=== PATIENT | male | born 1980 | race Two or more races ===

== ENCOUNTER 2022-04-10 11:21 | Observation (INO) | payer OTHER ==
[~2022-04-10] VITALS: Ht 165.1 cm; Wt 73.8 kg
--- NOTE | 2022-04-10 20:00 | NUR ---
report received from pileremilia whaley via telephone, awaiting pt's arrival to [facility] floor.
--- NOTE | 2022-04-10 20:30 | NUR ---
pt ARRIVES TO [facility] FLOOR. ADMISSION SCREENING COMPLETE. pt NAUSEOUS, NO EMESIS AT THIS TIME. HYPERTENSIVE, pt SITTING AT SIDE OF BED, STATES THAT HE'S PAINFUL, MAYBE 9/10 THEN RETRACTS, STATES "WELL I DID JUST GET PAIN MEDICATION IN THE ER". ASSISTED pt TO CALL FRIEND, ADDED TO CONTACT LIST BY REQUEST, LUCRETIA NUNO [phone]. ORIENTATION TO ROOM PROVIDED. CALL LIGHT NEXT TO pt. PRIMARY RN NOTIFIED OF BP, PAIN, NAUSEA.
--- NOTE | 2022-04-10 20:50 | NUR ---
call made to dr martinez to clarify ng orders, per report from ed, pt did not tolerate attempt to place ng tube and had approx [address] martinez, okay to go without ng tube at this time and if pt feels it could be placed later in shift without throwing up staff can try again then. charge account identification clerk bailey updated. dr martinez also made aware of elevated bp result of 134/100, map of 109. no new orders received at this time. will monitor. bed alarm on.
--- NOTE | 2022-04-10 21:34 | NUR ---
ASSESSMENT COMPLETE, pt FOUND RESTING IN BED WITH EYES CLOSED. RR EVEN AND UNLABORED, NO DISTRESS NOTED. pt AWOKE TO VOICE REPORTS NAUSEA AND 8/10 PAIN. PRN PAIN AND NAUSEA MEDICATION GIVEN-SEE EMAR. IV SITE WNL, BRISK BLOOD RETURN NOTED. IV FLUIDS INFUSING DIRECTED. EMESIS AND PERSONAL BELONGINGS REMAIN IN REACH, BED ALARM ON. DISCUSSED POC FOR REMAINING SHIFT, pt VERBALIZED UNDERSTANDING. pt REFUSES NG TUBE PLACEMENT AT THIS TIME, pt EDUCATED ON RATIONALE FOR NG TUBE, CONTINUES TO POLITELY DECLINE. WILL MONITOR. WILL CONTINUE TO MONITOR.
--- NOTE | 2022-04-10 23:16 | NUR ---
ROUNDED ON pt, pt RESTING QUIETLY IN BED WITH EYES CLOSED. ON RA, RR EVEN AND UNLABORED. NO DISTRESS NOTED. BED ALARM REMAINS ON AND CALL LIGHT IN REACH. NO OUTWARD S/SX OF PAIN NOTED, WILL MONITOR. IV FLUIDS INFUSING DIRECTED, IV SITE REMAINS WNL.
--- NOTE | 2022-04-11 01:22 | NUR ---
ROUNDED ON pt, pt REAMISN RESTING IN BED WITH EYES CLOSED. ON RA, RR EVEN AND UNLABORED. NO DISTRESS NOTED. CALL LIGHT IN REACH AND BED ALARM ON FOR SAFETY. IV SITE WNL, FLUIDS INFUSING DIRECTED. WILL CONTINUE TO MONITOR.
--- NOTE | 2022-04-11 03:31 | NUR ---
ROUNDED ON pt, pt AWOKE TO VOICE. VSS, CPOX AND SCD'S IN PLACE. BED ALARM REMAINS ON FOR SAFETY AND CALL LIGHT IN REACH. pt REMOVED JEANS AND WEIGHT OBTAINED VIA BED AND CHARTED. pt REPORTS 8/10 PAIN, REPORTS 5/10 PAIN IS TOLERABLE. PRN PAIN MEDICATION GIVEN-SEE EMAR. NEW BAG IV FLUIDS ALSO HUNG AND INFUSING DIRECTED, IV SITE WNL. pt DENIES NEED TO VOID. CALL LIGHT IN REACH.
--- NOTE | 2022-04-11 04:41 | NUR ---
pt RESTING IN BED WITH EYES CLOSED, FACING WINDOW. ON RA, RR EVEN AND UNLABORED, NO DISTRESS NOTED. CPOX IN PLACE, SPO2 96% AND HR 86%. BED ALARM ON FOR SAFETY AND CALL LIGHT IN REACH. SCD'S ALSO ON. NO URINE NOTED YET IN URINAL, WILL MONITOR. IV FLUIDS INFUSING DIRECTED.
--- NOTE | 2022-04-11 05:19 | NUR ---
rounded on pt, pt awake and resting in bed. bed alarm remains on for safety and call light in reach. lab also in room for am lab draw. vss, cpox remains in place. pt instructed to use urinal and use call light once done. pt verbalized understanding. no additional needs or concerns verbalized at this time.
--- NOTE | 2022-04-11 06:33 | CONS ---
[facility] [address], [place] [address] Signed DATE OF CONSULTATION: 04/10/2022 CHIEF COMPLAINT: Generalized abdominal pain. HISTORY OF PRESENT ILLNESS: Jaimie is a 41-year-old gentleman, otherwise quite healthy, who over the last two days has had generalized abdominal pain, nausea, vomiting, diarrhea, chills and sweats. He was getting more dehydrated and the pain seemed to be getting worse, so he came to the emergency room for evaluation. In the emergency room, he was not particularly concerning on his abdominal exam and his blood work was not overly concerning other than his concentrated urine. COVID test was negative. A CT scan of the abdomen and pelvis shows a very dilated stomach with fluid and air along with air-fluid levels and dilated small bowel and some stool and air in the colon most concerning for a viral gastroenteritis. When they tried to place his NG tube, he vomited quite a bit and said he does feel better. He has received some IV fluids. He did require some Dilaudid here in the emergency room. No antibiotics. I have been asked to see him here in the emergency room as a general surgeon on-call. PAST MEDICAL HISTORY: None. PAST SURGICAL HISTORY: None. SOCIAL HISTORY: He does not smoke, drink, or use IV drugs. He has a girlfriend named Ghada. 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 He is originally from [place], [place]. He has no primary care provider. He prefers the [facility] pharmacy. FAMILY HISTORY: None. REVIEW OF SYSTEMS: He had 10 systems reviewed and there were no new findings. He has injured his shoulders but otherwise no surgeries. ALLERGIES: Shellfish causes anaphylaxis. MEDICATIONS: None. Electronically Signed By: BILL BYRNE MD 04/11/22 0633 PATIENT NAME: JAIMIE VOGT CONSULTATION DATE OF : 84 REPORT #: [id number] PHYSICIAN: BILL BYRNE MD PCP: NO PRIMARY CARE PHYSICIAN REPORT IS CONFIDENTIAL AND NOT TO BE RELEASED WITHOUT AUTHORIZATION [facility] [address], [place] [address] Signed PHYSICAL EXAMINATION: VITAL SIGNS: His blood pressure is 141/112, heart rate is 65, respiratory rate 18, temperature is 98.0. He is 96% on room air. He is 5 feet 5 inches at 70 kg with a body mass index of 25. GENERAL: Jaimie is a 41-year-old gentleman lying supine in his ER bed. He does not appear to be in obvious distress. He seems to be a good historian. His lips were a bit dry. LUNGS: Clear to auscultation bilaterally. HEART: Regular rate and rhythm without murmurs. ABDOMEN: Soft, flat and nontender without peritoneal signs or symptoms. LABORATORY DATA: His white blood count is 9.2, hemoglobin 17, neutrophils 66. Electrolytes are unremarkable. BUN 13, creatinine 1.0. Urinalysis showed his specific gravity greater than 1.03 with ketones, protein, and 2+ bacteria. A urine culture has been sent. COVID is negative. The liver function tests are negative. Lipase is negative. Albumin is 4.2. RADIOGRAPHIC STUDIES: CT scan of the abdomen and pelvis shows a rather distended stomach with air-fluid levels as well as dilated small bowel with air-fluid levels and then air and stool in his colon. ASSESSMENT AND PLAN: Jaimie is a 41-year-old gentleman, who appears to have fairly significant viral gastroenteritis with dehydration. I doubt he has urinary tract infection. We are going to admit him with conservative treatment particularly IV fluids. We can repeat the UA tomorrow. He told me he has no symptoms with respect to his urinary system. I reviewed this in detail with Jaimie. He has expressed understanding and agrees with the above plan. Bill Byrne MD ALB/MODL /[id number] cc: Bill Byrne MD Electronically Signed By: BILL BYRNE MD 04/11/22 0633 PATIENT NAME: JAIMIE VOGT CONSULTATION DATE OF : 84 REPORT #: [id number] PHYSICIAN: BILL BYRNE MD PCP: NO PRIMARY CARE PHYSICIAN REPORT IS CONFIDENTIAL AND NOT TO BE RELEASED WITHOUT AUTHORIZATION [facility] [address] [place] [id number] Signed Copies: BILL BYRNE MD ~ Electronically Signed By: BILL BYRNE MD 04/11/22 0633 PATIENT NAME: JAIMIE VOGT CONSULTATION DATE OF : 84 REPORT #: [id number] PHYSICIAN: BILL BYRNE MD PCP: NO PRIMARY CARE PHYSICIAN REPORT IS CONFIDENTIAL AND NOT TO BE RELEASED WITHOUT AUTHORIZATION
--- NOTE | 2022-04-11 06:35 | NUR ---
dr martinez at rn station and made aware of recent 400mls output- concentrated and smelly urine per community reinvestment act officer. dr martinez updated. no new orders received.
--- NOTE | 2022-04-11 06:57 | NUR ---
2 gm mag rider infusing as directed, iv site wnl. call light inr each. cpox in place, vss.
--- NOTE | 2022-04-11 07:39 | NUR ---
RECIEVED SHIFT REPORT. PT RESTING IN BED, EYES CLOSED. BREATHING EVEN AND UNLABORED. CALL LIGHT WITHIN REACH.
--- NOTE | 2022-04-11 09:57 | NUR ---
MORNING ASSESSMENT COMPLETE. PT RESTING IN BED, EYES CLOSED, EASY TO AROUSE, DROWSEY. PT RATES PAIN 7/10 IN THE ABD. DOESNT APPEAR IN DISTRESS. ABD TENDER, BOWEL TONES ACTIVE IN ALL QUADRANTS. CALL LIGHT WITHIN REACH. BED ALARM ON.
--- NOTE | 2022-04-11 10:33 | NUR ---
venetian blind cleaner and repairer reported pt hasnt urinated. this rn in room to assess. pt was willing to get up and try. SBA without difficulty.
--- NOTE | 2022-04-11 11:09 | NUR ---
PT RESTING IN BED, EYES CLOSED, BREATHING EVEN AND UNALBORED. CALL LIGHT WITHIN REACH. BED ALARM ON.
--- NOTE | 2022-04-11 12:08 | NUR ---
pt resting in bed, eyes closed. breathing even and unlabored. call light within reach.
--- NOTE | 2022-04-11 13:32 | NUR ---
SPOKE WITH PATIENT IN ROOM AFTER WAKING HIM ON SECOND ATTEMPT TO SEE. PATIENT STATES HE LIVES WITH ROOMMATES. HE DENIES HAVING FINANCIAL WORRY FOR FOOD AND UTILITIES. STATES HE FEELS SAFE TO RETURN HOME AT DISCHARGE. PATIENT DOES NOT DRIVE. IS UNEMPLOYED AT THIS TIME. HE HAS INSURANCE FROM [facility] AND AGREES TO TALK WITH SOMEONE ABOUT CHANGING TO [place]. DISCUSSED I WILL HAVE SOMEONE FROM OUR FACILITY COME TALK WITH HIM FOR HELP, HE IS AGREEABLE TO THIS. DISCUSSED IMPORTANTANCE OF PCP. HE IS OPEN TO HAVE F/U APPT MADE FOR HIM WITH SOMEONE HE CAN SET UP WITH. HE IS OK WITH ANY CLINIC WHO HAS OPENING. HE USES NO DME. HE KNOWS OF NOTHING HE NEEDS TO RETURN HOME SAFELY AT THIS TIME.
--- NOTE | 2022-04-11 14:19 | NUR ---
pt resting in bed, eyes closed, breathing even and unlabored. call light within reach. bed alarm on.
--- NOTE | 2022-04-11 15:46 | NUR ---
TIA AND I GOT PATIENT UP OUT OF BED. PATIENT USED THE BATHROOM. NOW PATIENT IS SITTING UP IN HIS CHAIR SLEEPING. ASKED HIM IF HE WOULD LIKE A WARM BLANKET OR WATCH TV AND HE SAID NO.
--- NOTE | 2022-04-11 16:22 | NUR ---
afternoon assessment complete. no new changes since morning assessment. pt up in recliner. call light within reach.
--- NOTE | 2022-04-11 19:00 | NUR ---
REPORT RECEIVED FROM CHONG GRAHAM. PT RESTING IN BED WITH EYES CLOSED. RR EVEN AND UNLABORED. NO NEEDS IDENTIFIED AT THIS TIME. CALL LIGHT IN REACH. BED ALARM ON.
--- NOTE | 2022-04-11 21:30 | NUR ---
ASSESSMENT COMPLETE. LUNG SOUNDS CLEAR. BOWEL TONES ACTIVE. ABD TENDER WITH PALPATION. PT REPORTS PAIN 5/10 IN LLQ, BUT DENIES ANY PAIN MEDICATION WHEN OFFERED AT THIS TIME. I&Os COMPLETE. PT DENIES ANY OTHER NEEDS AT THIS TIME. CALL LIGHT IN REACH. BED ALARM ON. PT RESTING IN BED WITH EYES CLOSED. RR EVEN AND UNLABORED.
--- NOTE | 2022-04-12 00:36 | NUR ---
IN TO ROUND ON PT. IV PUMP ALARMING. FLUIDS COMPLETE. NEW BAG OF FLUIDS HUNG, SEE MAR. PT RESTING IN BED ON LEFT SIDE. RR EVEN AND UNLABORED. IV INFUSING WNL. PT REPORTS PAIN 5/10, BUT DENIES PAIN MEDICATION WHEN OFFERED. PT REPORTS NO OTHER NEEDS AT THIS TIME. CALL LIGHT IN REACH.
--- NOTE | 2022-04-12 05:51 | NUR ---
VITALS AND I&Os COMPLETE. ASSESSMENT COMPLETE. LUNG SOUNDS CLEAR. BOWEL TONES ACTIVE. ABD TENDER IN LLQ WITH PALPATION. PT REPORTS PAIN 5/10 IN LLQ, PT DENIES ANY PAIN MEDICATION WHEN OFFERED. IV INFUSING WNL. PT DENIES ANY NEEDS AT THIS TIME. CALL LIGHT IN REACH. BED ALARM ON.
--- NOTE | 2022-04-12 07:14 | NUR ---
REPORT RECEIVED FROM FLORES SCHWARZ. ALL QUESTIONS ANSWERED.
--- NOTE | 2022-04-12 07:22 | NUR ---
IN IV PUMP ALARMING, RESOLVED. NEW BAG OF FLUIDS STARTED AND RATE CHANGED, SEE MAR. PT RESTING IN BED WITH EYES CLOSED. RR EVEN AND UNLABORED. NO NEEDS IDENTIFIED AT THIS TIME. CALL LIGHT IN REACH. BED ALARM ON.
--- NOTE | 2022-04-12 08:43 | NUR ---
GOT PT UP TO CHAIR STBY ASSIST. LINEN CHANGE, SET UP FOR CLEAR BREAKFAST, NEW URINAL NEXT TO CHAIR FOR UA. WARM WASH CLOTH FOR FACE/HANDS. PT WAS HESITANT TO WAKE UP BEING SLEEPY. CALL LIGHT ON TABLE NEXT TO HIM. NO OTHER NEEDS AT THIS TIME.
--- NOTE | 2022-04-12 08:57 | NUR ---
pt urine noam sent to lab
--- NOTE | 2022-04-12 09:41 | NUR ---
MORNING ASSESSMENT COMPELTE. PT SITTING UP IN RECLINER WITH EYES CLOSED, AWAKENS EASILY. FLAT AFFECT. ONE WORD ANSWERS TO QUESTIONS AND BACK TO EYES CLOSED. PT DENIES PAIN OR NAUSEA AT THIS TIME. CLEAR LIQUID TRAY AT BEDSIDE, PT DRANK FULL CUP BROTH, TEA AT THIS TIME. PT DENIES FURTHER NEEDS AT THIS TIME. CALL LIGHT IN REACH.
--- NOTE | 2022-04-12 10:52 | NUR ---
PT RESTING IN CHAIR WITH EYES CLOSED. AWAKENS EASILY. PT TOLERATED FULL CLEAR LIQUID TRAY AT BREAKFAST, PT DENIES NAUSEA. PT DENIES FURTHER NEEDS AT THIS TIME. CALL LIGHT IN REACH.
--- NOTE | 2022-04-12 12:44 | NUR ---
MED REC COMPLETE
--- NOTE | 2022-04-12 19:10 | NUR ---
REPORT RECEIVED FROM CHONG STEELE. PT RESTING IN BED ON LEFT SIDE WITH EYES CLOSED. RR EVEN AND UNLABORED. PT RESPONDS WHEN ADDRESSED. PT DENIES ANY NEEDS AT THIS TIME. CALL LIGHT IN REACH.
--- NOTE | 2022-04-12 20:05 | NUR ---
VITALS AND I&Os COMPLETE. ASSESSMENT COMPLETE. PT RESTING IN BED WITH EYES CLOSED. RR EVEN AND UNLABORED. PT RESPONDS WHEN ADDRESSED. LUNG SOUNDS CLEAR. BOWEL TONES ACTIVE. ABD TENDER WITH PALPATION. PT STATES MORE TENDER ON "LEFT SIDE" WITH PALPATION. PT REPORTING PAIN 4/10, PT DENIES PAIN MEDICATION WHEN OFFERED. IV INFUSING WNL. PT DENIES ANY NEEDS AT THIS TIME. CALL LIGHT IN REACH. PT RESTING IN BED WITH EYES CLOSED. RR EVEN AND UNLABORED.
--- NOTE | 2022-04-13 03:18 | NUR ---
IN IV PUMP ALARMING, RESOLVED. NEW BAG OF FLUIDS STARTED, SEE MAR. PT RESTING ON LEFT SIDE. RR EVEN AND UNLABORED. URINAL EMPTIED. NO OTHER NEEDS IDENTIFIED AT THIS TIME. CALL LIGHT IN REACH.
--- NOTE | 2022-04-13 05:03 | NUR ---
IN WITH TATUM GALEANA. PT RESTING IN BED WITH EYES CLOSED. RR EVEN AND UNLABORED. PT RESPONDS WHEN ADDRESSED, BUT KEEPS EYES CLOSED. VITALS AND I&Os COMPLETE. IV INFUSING WNL. ASSESSMENT COMPLETE. LUNG SOUNDS CLEAR. BOWEL TONES ACTIVE. PT REPORTS ABD TENDERNESS WITH PALPATION. PT REPORTS PAIN 3/10, PT DENIES ANY PAIN MEDICATION WHEN OFFERED. PT RESTING IN BED WITH EYES CLOSED. RR EVEN AND UNLABORED. PT REPORTS NO NEEDS AT THIS TIME. CALL LIGHT IN REACH. FEMALE FRIEND IN ROOM.
--- NOTE | 2022-04-13 07:05 | NUR ---
REPORT RECEIVED FROM BOBBI SCHWARZ, ALL QUESTIONS ANSWERED.
--- NOTE | 2022-04-13 07:26 | DS ---
[facility] [address], [place] [address] Signed ADMISSION DATE: 04/10/2022 DISCHARGE DATE: 04/13/2022 FINAL DIAGNOSIS: Viral gastroenteritis. PROCEDURE: CT scan of abdomen and pelvis. HISTORY OF PRESENT ILLNESS: Brenden is a 41-year-old gentleman, otherwise healthy, who over two days had generalized abdominal pain, nausea, vomiting, diarrhea, chills and sweats. He was becoming dehydrated. He finally came to the emergency room for evaluation. He was seen and evaluated by the ER physician and myself. White count was not particularly concerning. His abdominal exam was not overly concerning with some mild distention and diffuse tenderness. CT scan showed multiple air-fluid levels in the stomach and small bowel with air and stool in his colon. An NG tube was attempted to be placed and that was unsuccessful. He then vomited and decompressed his stomach and felt better. He is admitted with his viral gastroenteritis. HOSPITAL COURSE: Brenden was admitted as above and started on IV fluids and some pain control. He recovered over several days and is feeling much better. He has had no nausea, vomiting, fevers or chills. He has been tolerating a clear liquid diet. He has had lots of flatus. No bowel movement yet. His abdomen now is completely soft, flat, and nontender. He has not needed any pain medications recently. We did repeat the urinalysis after his urine output picked up and it is quite clear. At this point, Brenden feels comfortable going home with his girlfriend. DISCHARGE PLANS AND MEDICATIONS: Brenden is going to be discharged home without any new prescriptions. He takes no medications at home. I have advised him to discontinue a full liquid diet at home at least for a day or two until he is confident that he is feeling better. Then, he can advance his diet as tolerated. We did encourage him to continue with electrolyte drinks such as Gatorade or Propel to stay hydrated. He can always use some 7UP or Sprite as well. If he has any recurrent issues, he is certainly welcome to come back to the emergency room or call my office. Otherwise, he will follow up in my office as needed. He has expressed understanding and agrees with the above plan. Electronically Signed By: BILL BYRNE MD 04/13/22 0726 PATIENT NAME: JAIMIE VOGT DISCHARGE SUMMARY DATE OF : 84 REPORT #: [id number] PHYSICIAN: BILL BYRNE MD PCP: NO PRIMARY CARE PHYSICIAN REPORT IS CONFIDENTIAL AND NOT TO BE RELEASED WITHOUT AUTHORIZATION [facility] [address], [place] [address] Signed Bill Byrne MD ALB/RODNEYL /[id number] cc: Bill Byrne MD Copies: BILL BYRNE MD ~ Electronically Signed By: BILL BYRNE MD 04/13/22 0726 PATIENT NAME: JAIMIE VOGT DISCHARGE SUMMARY DATE OF : 84 REPORT #: [id number] PHYSICIAN: BILL BYRNE MD PCP: NO PRIMARY CARE PHYSICIAN REPORT IS CONFIDENTIAL AND NOT TO BE RELEASED WITHOUT AUTHORIZATION
--- NOTE | 2022-04-13 08:16 | NUR ---
MORNING ASSESSMENT COMPLETE. PT RESTING IN BED, AWAKENS EASILY. DISCUSSED DISCHARGE, CARE RIDE HOME. PT VERBALIZED UNDERSTANDING. CALL LIGHT IN REACH.
== END 2022-04-13 09:50 | disposition home or self-care (01) ==
LOC: ED 11:21 → MS 11:23
PROVIDERS: ADMIT Colon & Rectal Surgery; ATTEND Colon & Rectal Surgery
DX: A08.4 Viral intestinal infection, unspecified (principal); E83.42 Hypomagnesemia; Z91.013 Allergy to seafood; Z20.822 Contact with and (suspected) exposure to COVID-19
CPT/HCPCS: 36415; 74177; 80048; 80053; 81001; 81003; 83690; 83735; 84100; 85025; 87088; 96372; 96375; 96376; C9113; G0378; J1170; J1650; J1885; J2405; J3475; J7030; J7121; U0003

== ENCOUNTER 2022-04-20 07:12 | Emergency (ER) | payer OTHER ==
[~2022-04-20] VITALS: Ht 165.1 cm; Wt 70.3 kg
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
== END 2022-04-20 08:04 | disposition home or self-care (01) ==
LOC: ED 07:12
DX: S60.221A Contusion of right hand, initial encounter (principal); W22.8XXA Striking against or struck by other objects, initial encounter; Z91.013 Allergy to seafood
CPT/HCPCS: 73130; 99283-25